=== PATIENT | female | born 1995 | race American Indian/Alaskan Native ===

== ENCOUNTER 2016-10-11 07:54 | Outpatient (CLI) | payer BC | END 2016-10-11 07:55 | disposition home or self-care (01) | LOC: US 07:54 | PROVIDERS: ATTEND Internal Medicine | DX: N60.31 Fibrosclerosis of right breast (principal) ==

== ENCOUNTER 2020-04-10 13:21 | Emergency (ER) | payer BC ==
[2020-04-10 13:27] VITALS: BP 136/83
== END 2020-04-10 14:49 | disposition left against medical advice (07) ==
LOC: ED 13:21
DX: M79.10 Myalgia, unspecified site (principal); Z53.21 Procedure and treatment not carried out due to patient leaving prior to being seen by health care provider; T74.21XA Adult sexual abuse, confirmed, initial encounter